=== PATIENT | male | born 1980 | race Caucasian/White ===

== ENCOUNTER → 2020-11-12 16:49 | Outpatient (BNVA) | payer OTHER, SELFPAY | PROVIDERS: Visit Provider Physician Assistant Medical | DX: M54.9 Dorsalgia, unspecified (principal); S49.90XD Unspecified injury of shoulder and upper arm, unspecified arm, subsequent encounter; X58.XXXD Exposure to other specified factors, subsequent encounter | CPT/HCPCS: 99213 ==

== ENCOUNTER → 2021-01-28 15:38 | Outpatient (BNVA) | payer OTHER, SELFPAY | PROVIDERS: Visit Provider Physician Assistant Medical | DX: M46.1 Sacroiliitis, not elsewhere classified (principal); S39.012D Strain of muscle, fascia and tendon of lower back, subsequent encounter; S43.401D Unspecified sprain of right shoulder joint, subsequent encounter; X58.XXXD Exposure to other specified factors, subsequent encounter | CPT/HCPCS: 99214 ==

== ENCOUNTER → 2021-03-11 13:04 | Outpatient (BNVA) | payer OTHER, SELFPAY | PROVIDERS: Visit Provider Physician Assistant Medical | DX: S33.9XXD Sprain of unspecified parts of lumbar spine and pelvis, subsequent encounter (principal); X58.XXXD Exposure to other specified factors, subsequent encounter; M77.8 Other enthesopathies, not elsewhere classified | CPT/HCPCS: 99213 ==

== ENCOUNTER → 2021-04-06 10:41 | Outpatient (BNVA) | payer OTHER, SELFPAY | PROVIDERS: Visit Provider Physician Assistant Medical | DX: S46.011D Strain of muscle(s) and tendon(s) of the rotator cuff of right shoulder, subsequent encounter (principal); X58.XXXD Exposure to other specified factors, subsequent encounter; M54.5 Low back pain | CPT/HCPCS: 99213 ==

== ENCOUNTER → 2021-04-27 11:00 | Outpatient (BNVA) | payer OTHER, SELFPAY | PROVIDERS: Visit Provider Physician Assistant Medical | DX: S39.92XD Unspecified injury of lower back, subsequent encounter (principal); S43.401D Unspecified sprain of right shoulder joint, subsequent encounter; X58.XXXD Exposure to other specified factors, subsequent encounter | CPT/HCPCS: 99213 ==

== ENCOUNTER 2021-05-05 09:00 | Outpatient (RCR) | payer OTHER, SELFPAY ==
--- NOTE | 2021-04-07 11:15 | MHC.PT.EP ---
[facility] [place] Office [place] Office [place] Office [address] 140 [facility] [phone] F: [phone] F: [phone] F: [phone] F: [phone] Physical Therapy Plan of Care Date of Evaluation: Date of Surgery: Diagnosis: right supraspinatus tendonopathy Assessment: The patient arrived reporting right shoulder pain that resulted from a work related injury in Aug 2019. He has painful and limited shoulder motion especially shoulder IR. Fear and apprehension with shoulder IR motion. Special tests indicate labral pathology, which is corroborated with a shoulder MRI done in September 2019. He has most pain when arm is perpendicular to his body against gravity. Pt reports pain in the back corner of his shoulder during all motion. No numbness or tingling noted in right arm. It does not seem to be cervical related. The patient has reduced shoulder strength due to pain limitation. As of result he has decreased functional reaching ability, decreased functional use. Frequency and Duration: The patient will be seen 2x/week x 4 weeks Short Term Goals: 1. Pt to be able to get dressed and perform 50% of functional reaching in 2 weeks. 2. Pt to be educated on good sitting posture to avoid further strain to shoulder. 3. Pt to find a comfortable sleeping position. Automation Control Technician Goals: 4 weeks - The patient to have greater than 160 degrees of flexion and abduction to show improved functional ROM. 4 weeks ? The patient to have 5/5 strength with flexion and abduction to demonstrate functional strength 4 weeks ? The patient to be able to return to all functional reaching, self care ADL's without any limitation from pain or loss of ROM. Treatment Plan: Modalities to reduce pain, spasms and effusion. Manual therapy to restore motion and function. Therapeutic exercise to improve strength and flexibility. Neuromuscular re-education for posture and balance. Therapeutic activities to return to functional activities of daily living. Electronically signed by: Katherine Jackson PT DPT Please sign and return to therapist. Thank you for your referral.
--- NOTE | 2021-04-19 10:15 | MHC.PT.PR ---
[facility] [place] Office [place] Office [place] Office [address] [phone] F: [phone] F: [phone] F: [phone] F: [phone] Physical Therapy Progress Note Diagnosis: right supraspinatus tendonopathy Date of Surgery: Date of Evaluation: 04/07/21 Treatments to Date: 3 Cancellations to Date: No Shows to Date: Subjective: My shoulder catches and I know what to do to put it back in. It really hurts me. Pain Score and Location: 6 under the shoulder blade, posterior shoulder Objective Measures: please see eval Assessment: The patient has catching/locking in his shoulder joint with overhead, diagonal movements. Once his shoulder catches it is locked and painful with restricted movement until he does horizontal abduction to free it. The pop is very painful. He has more pain with joint approximation such as weight bearing activities, or overhead activities with weight. He has no pain with certain movements such as scap retraction, horizontal abduction, shoulder extension. He is positive for special tests such as clunk 3, crank test, and jerk test. His pain presentation and objective findings are consistent with a posterior labral tear. I believe he would benefit from an Orthopedic surgeon consult. PT Plan: Continue PT for pain free strengthening, but refer back to MD for Ortho Consult Frequency and Duration: The patient will be seen 2x/week as long as pain does not increase. Treatment Plan: Therapeutic Exercise Dynamic Therapeutic Activities Neuromuscular Re-ed Manual Therapies Taping Home Exercise Program Patient Education Iontophoresis Hot or Cold Pack Other Reviewed/ Agreed with Student Documentation: Therapist: Katherine Jackson PT DPT Thank you once again for your referral.
--- NOTE | 2021-05-05 10:28 | MHC.PT.DC ---
[facility] [place] Office [place] Office [place] Office [address] Mendi[address] 140 [facility] [phone] F: [phone] F: [phone] F: [phone] F: [phone] Physical Therapy Discharge Report Diagnosis: right supraspinatus tendonopathy Date of Surgery: Date of Evaluation: 04/07/21 Date of Discharge: 05/05/21 Treatments to Date: 8 Cancellations to Date: No Shows to Date: Discharge Status: Independent with HEP Insurance Declined Tx Discharge Summary: The patient was given a HEP to continue to work at home. Pt cued in hip hinge position to avoid strain to lumbar spine. The patient feels he is getting stronger, but regular catching and locking is still happening intermittently in session. When shoulder catches the patient does horizontal abduction and it self reduces it. His activity tolerance has improved significantly demonstrated by increasing weight with certain exercises as performed in the treatment session above. His shoulder extension strength is 4+/5, tricep is 4+/5, mid scap is 4+/5. I believe a surgical consult would benefit this patient due to results from his previous MRI findings in 2019. Pt will f/u with [facility]. PT d/c today from skilled PT. Electronically signed by: Katherine Jackson PT DPT Please sign and return to therapist. Thank you for your referral.
== END 2021-06-07 08:00 | disposition home or self-care (01) ==
LOC: HO.PT 09:00
PROVIDERS: Visit Provider Physician Assistant Medical
DX: M77.8 Other enthesopathies, not elsewhere classified (principal)
CPT/HCPCS: 97033; 97110; 97112; 97140; 97162

== ENCOUNTER → 2021-09-22 09:31 | Outpatient (BNVA) | payer OTHER, SELFPAY | DX: Z02.83 Encounter for blood-alcohol and blood-drug test (principal) ==

== ENCOUNTER 2022-10-16 08:47 | Emergency (ER) | payer OTHER, SELFPAY ==
[2022-10-16 08:49] VITALS: BP 115/81; PULSE 87; RESP 16; TEMP 36.6; O2SAT 98; BMI 25.8
--- NOTE | 2022-10-16 09:10 | ED.GENADULT ---
HPI - General Adult General Chief complaint: General Medical Stated complaint: FLU SYMPTOMS Time Seen by Provider: 10/16/22 09:09 Source: patient Mode of arrival: ambulatory Limitations: no limitations History of Present Illness HPI narrative: Patient is a 41 year old assigned male at with no reported medical history presenting to the emergency department today with sinus pain and cough. Patient states that over the last 6 days he has had sinus pain and a cough. Patient denies any dizziness, lightheadedness, abdominal pain, nausea, vomiting, fever, chills, blurry vision, double vision, loss of vision, chest pain, difficulty breathing, shortness of breath, back pain, night sweats, pain with urination, increased urinary frequency, increased urinary urgency, blood in his urine or stool, syncope or a near syncopal episode, recent trauma or falls, bowel incontinence, bladder incontinence, bowel retention, bladder retention, or any other complaints at this time. Onset (ago): day(s) (6) Location: face Radiation: non-radiation Severity: mild Severity scale (1-10): 3 Quality: aching and dull Pain Consistency: constant Relieving factors: none Exacerbating factors: none Associated symptoms: cough Treatments prior to arrival: none Related Data Previous Rx's Medication Instructions Recorded doxycycline hyclate 100 mg tablet 100 mg PO BID 7 days #14 tabs 10/16/22 Allergies Allergy/AdvReac Type Severity Reaction Status Date / Time No Known Allergies Allergy Verified 10/01/20 06:37 [No Known Allergies*] Review of Systems Constitutional: Constitutional: Reports no additional constitutional complaints, Denies chills, Denies fever(s) and Denies night sweats Eyes: Eyes: Reports no additional eye complaints, Denies blurry vision, Denies change in vision, Denies diplopia, Denies eye discharge, Denies loss of vision and Denies eye pain ENT: Denies dizziness and Reports sinus pressure Cardiovascular: Cardiovascular: Reports no additional cardiovascular complaints, Denies chest pain, Denies lightheadedness, Denies Loss of Consciousness and Denies dyspnea Respiratory: Respiratory: Reports no additional respiratory complaints, Reports cough and Denies dyspnea Gastrointestinal: Gastrointestinal: Reports no additional gastrointestinal complaints, Denies abdominal pain, Denies melena, Denies hematochezia, Denies change in bowel habits and Denies change in stool character Genitourinary: Genitourinary: Reports no additional male genitourinary complaints, Denies hematuria, Denies oliguria, Denies difficulty urinating, Denies dysuria, Denies urinary frequency, Denies urinary hesitancy, Denies urinary incontinence and Denies urinary urgency Musculoskeletal: Musculoskeletal: Reports no additional musculoskeletal complaints, Denies numbness and Denies tingling Neurologic: Denies dizziness, Denies loss of vision, Denies numbness and Denies tingling Psychiatric: Psychiatric: Reports no additional psychiatric complaints Endocrine: Endocrine: Reports no additional endocrine complaints Hematologic/Lymphatic: Hematologic/Lymphatic: Reports no additional hematologic/lymphatic complaints Allergic/Immunologic: Allergic/Immunologic: Reports no additional allergic/immunologic complaints PMFSH Past Medical History Attestation statement: The following information was validated with the patient. Source: old records reviewed Surgical History No pertinent past surgical history Family History Family History Father Stroke Vision loss Diabetes Mother Arthritis Osteoporosis Hyperthyroidism Social History Social History Advance Directives: No Advance Directives Information Provided: No Physical Exam ED Vital Signs: Vital Signs - 24 hr 10/16/22 08:49 Temperature 97.8 F Pulse Rate 87 Respiratory Rate 16 Blood Pressure 115/81 Pulse Oximetry 98 Oxygen Delivery Method Room Air BMI result Body Mass Index 25.8 Const General: cooperative, no acute distress, alert and awake Nutritional Appearance: well nourished Orientation/consciousness: patient oriented x3 Limitations: no limitations [facility] Head: Yes normal to inspection and Yes atraumatic Ears: hearing grossly normal bilaterally and external ears normal General nose exam: Normal external nose present, no nasal discharge noted and no epistaxis Face and sinus: Yes normal facial exam, No abrasion, No laceration and Yes sinus tenderness Mouth: Normal oral and palatal mucosa present, no drooling and no muffled voice Eyes General: appearance normal, both eyes and all related structures Periorbital: periorbital findings normal Eyelids: Yes eyelids normal Conjunctivae: conjunctivae normal Pupils: Equal, round and reactive pupils present EOM: EOMs intact bilaterally Neck Neck: Yes normal visual inspection, Yes full ROM and Yes no lymphadenopathy Chest Chest palpation & inspection: normal inspection of the chest Resp Effort & Inspection: normal respiratory effort and able to speak in complete sentences Auscultation: clear to auscultation bilaterally Cardio Rate: regular rate Rhythm: regular rhythm GI Inspection: Yes normal to inspection Neuro General: patient oriented x3 and moves all extremities Cranial nerves: Yes Equal, round and reactive pupils present Cognition (Neuro): normal cognition Motor exam (neuro): 5/5 motor strength present throughout Sensory Exam: Normal double simultaneous stimulation for sensation Coordination: [id number] test normal Extrem General: Yes normal to inspection, Yes full ROM and Yes capillary refill normal Psych Appearance: grossly normal Mental Status: mental status grossly normal Affect: normal affect Attitude: cooperative Thought process: Normal thought process present Thought content: Normal thought content present Insight: Good insight present (Psych) Medical Decision Making MDM Narrative Medical decision making narrative: Patient is a 41 year old assigned male at with no reported medical history presenting to the emergency department today with sinus pain and a cough. Patient's physical exam showed sinus pain with palpation but was otherwise unremarkable. Patient's rapid COVID-19, influenza, and RSV tests were negative. Patient's clinical presentation is most consistent with acute sinusitis. I explained my physical exam findings as well as all test results to the patient. I answered all questions asked by the patient. I stressed the importance of the patient taking his medication as prescribed. I stressed the importance of the patient following up with his primary care provider. I stressed the importance of the patient returning to the emergency department immediately if his symptoms were to worsen or if he were to develop any dizziness, shortness of breath, difficulty breathing, chest pain, blurry vision, loss of vision, nausea, vomiting, abdominal pain, fever, chills, back pain, or any other complaints. Patient verbalized agreement and understanding with this treatment plan and discharge. Medical Records Medical records reviewed: Yes I reviewed the patient's medical records. Lab Data Lab results reviewed: Yes I reviewed the patient's lab results. Labs: Lab Results 10/16/22 Range/Units 09:34 Influenza Type A (PCR) NEGATIVE (Negative) Influenza Type B (PCR) NEGATIVE (Negative) RSV RNA Qual (PCR) NEGATIVE (Negative) SARS-CoV-2 RNA (RT-PCR) NEGATIVE (Negative) Discharge Plan Discharge Clinical Impression: Sinusitis Patient Disposition: Home, Self-Care Instructions: Sinusitis (ED) Additional Instructions: Follow up with your primary care provider. Return to the emergency department immediately if your symptoms worsen or if you develop any dizziness, shortness of breath, difficulty breathing, chest pain, blurry vision, loss of vision, nausea, vomiting, abdominal pain, fever, chills, back pain, or any other complaints. Prescriptions: New doxycycline hyclate 100 mg tablet 100 mg PO BID 7 Days Qty: 14 0RF [place] [facility] [place] (Call to establish and follow up with a primary care provider. If you already have a primary care provider, please follow up with them. ) [facility] [place] [facility] [place] Group] (Call to establish and follow up with a primary care provider. If you already have a primary care provider, please follow up with them. ) [facility] [place] [facility] [place] Group] (Call to establish and follow up with a primary care provider. If you already have a primary care provider, please follow up with them. ) Stand Alone Forms: Work/School Release Interventions: ED Discharge Assessment Last Done: 10/16/22 11:02 Discharge Date/Time: 10/16/22 11:02 Print Language: Omani
[2022-10-16 10:31] LABS: Influenza A PCR NEGATIVE (Negative); Influenza B PCR NEGATIVE (Negative); Resp Syncy Virus RNA Qual PCR NEGATIVE (Negative); SARS COV2 PCR INHOUSE NEGATIVE (Negative)
== END 2022-10-16 11:02 | disposition home or self-care (01) ==
PROVIDERS: Physician Assistant Medical; Emergency Provider Emergency Medicine
DX: J32.9 Chronic sinusitis, unspecified (principal); Z20.822 Contact with and (suspected) exposure to COVID-19
CPT/HCPCS: 0241U; 99282; 99283

== ENCOUNTER 2023-07-25 09:20 | Emergency (ER) | payer OTHER, SELFPAY ==
[2023-07-25 09:26] VITALS: BP 118/76; PULSE 92; RESP 18; TEMP 36.6; O2SAT 96; BMI 25.9
--- NOTE | 2023-07-25 10:15 | ED.GENADULT ---
HPI - General Adult General Chief complaint: General Medical Stated complaint: Rectal pain Time Seen by Provider: 07/25/23 09:35 Source: patient Mode of arrival: ambulatory Limitations: no limitations History of Present Illness HPI narrative: 40-year-old male with no significant past medical history presents to the ED today with a complaint of rectal pain x2 days, worse with defecation. Admits to straining when passing bowel movements. Notes his rectum is painful to the touch. States pain improvement with a warm a shower/warm compresses. Denies any BRBPR, hematochezia, constipation, diarrhea, abdominal pain, N/V, fever, chills. No trauma or injury to the area. MD complaint: Rectal pain Related Data Previous Rx's Medication Instructions Recorded doxycycline hyclate 100 mg tablet 100 mg PO BID 7 days #14 tabs 10/16/22 pramoxine 1 % topical foam 1 appl AR BID #15 grams 07/25/23 (Proctofoam) Allergies Allergy/AdvReac Type Severity Reaction Status Date / Time No Known Allergies Allergy Verified 07/25/23 09:26 [No Known Allergies*] Review of Systems Review of Systems: Constitutional : No Weight loss, No Fever, No Chills ENT/Mouth : No sore throat, No Rhinorrhea Eyes: No Eye Pain, No Swelling, No Redness Cardiovascular : No Chest Pain, No SOB, No Dyspnea on Exertion, No Orthopnea, No Edema, No Palpitations Respiratory : No Cough, No Sputum, No Wheezing Gastrointestinal : No Nausea, No Vomiting, No Diarrhea, No Constipation, No abdominal Pain, No Hematochezia, No Melena, + rectal pain Genitourinary : No Dysuria, No Urinary Frequency, No Hematuria, Musculoskeletal : No joint pain, No Myalgias, No Joint Swelling Skin : No Skin Lesions, No rash Neuro : No Weakness, No Numbness, No Dizziness, No Headache All other systems reviewed and are negative Yes all other systems are reviewed and are negative PMFSH Past Medical History Attestation statement: The following information was validated with the patient. Source: old records reviewed and nursing notes reviewed Surgical History No pertinent past surgical history Family History Family History Father Stroke Vision loss Diabetes Mother Arthritis Osteoporosis Hyperthyroidism Social History Social History Alcohol intake: never Smoked in Last 30 Days: Yes Use of substances other than those prescribed or required for medical reasons: No Advance Directives: No Physical Exam ED Vital Signs: Vital Signs - 24 hr 07/25/23 09:26 Temperature 98 F Pulse Rate 92 Respiratory Rate 18 Blood Pressure 118/76 Pulse Oximetry 96 Oxygen Delivery Method Room Air BMI result Body Mass Index 25.9 Vital signs stable Appearance: Alert.? Oriented X3.? No acute distress.? Head: Normocephalic, atraumatic, no step-offs or deformities Eyes: Pupils equal, round and reactive to light.? ENT: Pharynx normal.? Neck: Normal inspection.? Neck supple.? CVS: Normal heart rate and rhythm.? Pulses normal.? Respiratory: No respiratory distress.? Breath sounds normal.? Abdomen: Soft and nontender.? External hemorrhoid, not thrombosed, tender to palpation. Normal skin color, no active bleeding. No visible fissures. Skin: Skin warm and dry.? Normal skin color.? Normal skin turgor.? Extremities: No lower extremity edema.? No calf ttp. 5/5 strength to bilateral upper and lower extremities Back: No midline tenderness, no C-spine tenderness, full range of motion, no CVA tenderness bilaterally Neuro: Oriented X 3.? No motor deficit.? No sensory deficit. CN 2-12 intact Medical Decision Making Medical Decision Making [facility] Narrative: 1015 42 yo male presents with rectal pain x few days Rectal exam notable for external hemorrhoid without thrombosis, nontender to palpation, normal skin color. Likely hemorrhoids vs fissure, constipation. Unlikely fistula, GI bleed, diverticulosis, diverticulitis, IBD, thrombosed hemorrhoid, gangrene, fourniers Plan- dc home w/ proctofoam Differential Diagnosis Differential Diagnoses: The differential diagnosis associated with the presentation includes Likely hemorrhoids vs fissure, constipation. Unlikely fistula, GI bleed, diverticulosis, diverticulitis, IBD, thrombosed hemorrhoid, gangrene, fourniers Admission/Observation Consideration of admission/observation: Escalation of care including admission/observation considered Prescription Management I considered prescription management with: Other (Steroid) Core Measures AMI core measures followed: Yes Measure exclusions: not indicated Discharge Plan Discharge Clinical Impression: Hemorrhoids Patient Disposition: Home, Self-Care Instructions: Hemorrhoids (ED), Sitz Bath (DC), Thrombosed Hemorrhoid (ED) Additional Instructions: Take your medications as prescribed. If you were prescribed antibiotics today, it is important that you take your medication to their entirety, do not skip any doses, do not finish them early. Follow-up with your primary care provider this week. Return to the emergency department with new or worsening symptoms. Such as fevers, chills, chest pain, shortness of breath, nausea, vomiting, dizziness, headache, vision changes, lethargy In case of emergency call 911 You have hemorrhoids. An ointment has been sent to your pharmacy. Use this as prescribed. Follow-up with your PCP or general surgery. Prescriptions: New pramoxine [Proctofoam] 1 % foam 1 appl AR BID Qty: 15 0RF No Action doxycycline hyclate 100 mg tablet 100 mg PO BID 7 Days Qty: 14 0RF Referrals: [facility] [place]Provider Group] Physician,None [Primary Care Provider] - Interventions: ED Discharge Assessment Last Done: 07/25/23 10:44 Discharge Date/Time: 07/25/23 10:44
== END 2023-07-25 10:44 | disposition home or self-care (01) ==
PROVIDERS: Emergency Provider Student in an Organized Health Care Education/Training Program
DX: K64.4 Residual hemorrhoidal skin tags (principal)
CPT/HCPCS: 99283; 99284

== ENCOUNTER 2023-12-15 11:09 | Emergency (ER) | payer OTHER, SELFPAY ==
[2023-12-15 11:20] VITALS: BP 127/81; PULSE 71; RESP 20; TEMP 36.3; O2SAT 98; BMI 24.4
--- NOTE | 2023-12-15 11:20 | ED_ITS ---
HPI - General Adult General Chief complaint: General Medical Stated complaint: groin pain Time Seen by Provider: 12/15/23 12:38 Source: patient Mode of arrival: ambulatory Limitations: no limitations History of Present Illness HPI narrative: patient is a 42-year-old male who presents emergency department for evaluation of left groin pain. He states he was diagnosed with a small Inguinal hernia 20 years ago, which was never problematic. However, he reports pain over the past 3 months that has been increasingly worsening. Pain is localized to the left lower quadrant of the abdomen, bordering the suprapubic region more so to the midline, described as severe episodes of pain that is worse with coughing and movement, though he does admit the pain is intermittent. he states at times he notices a small bulge to the area that is painful. Reports that he decided to come for evaluation today because he noticed the pain to be present while walking at work which is the 1st time that this has occurred. He denies any urinary symptoms. Denies fevers, chills, nausea, vomiting, constipation, diarrhea. Related Data Previous Rx's Medication Instructions Recorded doxycycline hyclate 100 mg tablet 100 mg PO BID 7 days #14 tabs 10/16/22 pramoxine 1 % topical foam 1 appl [place] BID #15 grams 07/25/23 (Proctofoam) Allergies Allergy/AdvReac Type Severity Reaction Status Date / Time No Known Allergies Allergy Verified 07/25/23 09:26 [No Known Allergies*] Review of Systems Review of Systems: Yes all other systems are reviewed and are negative PMFSH Past Medical History Attestation statement: The following information was validated with the patient. Source: old records reviewed Onset Date is defined in the Problem List Problems that require an onset date and time if occurred within 24 hrs of arrival to the ED Aortic Dissection and Rupture; Neurologic impairment; Cardiopulmonary Arrest; Endotracheal Intubation; Insertion or Replacement of Mechanical Circulatory Assist Device Surgical History No pertinent past surgical history Family History Family History Father Stroke Vision loss Diabetes Mother Arthritis Osteoporosis Hyperthyroidism Social History Social History Alcohol intake: never Advance Directives: No Advance Directives Information Provided: No Physical Exam ED Vital Signs: Vital Signs - 24 hr 12/15/23 11:20 Temperature 97.3 F Pulse Rate 71 Respiratory Rate 20 Blood Pressure 127/81 Pulse Oximetry 98 Oxygen Delivery Method Room Air BMI result Body Mass Index 24.4 Appearance: Alert.?Oriented to person, place and time. No acute distress.?Normal affect. Eyes: Pupils equal, round and reactive to light.? ENT: Pharynx normal.?? Neck: Normal inspection.? Neck supple.?? CVS: Heart sounds normal. Normal heart rate and rhythm.? Pulses normal.?? Respiratory: No respiratory distress.? Lung sounds clear to auscultation bilaterally?? Abdomen: Soft and non-tender. Normoactive bowel sounds. No pulsatile mass.?? Skin: Skin warm and dry.? Normal skin color.? Extremities: No lower extremity edema.? Neuro: Moves all extremities spontaneously. Sensation intact bilaterally. Ambulates with normal steady gait. Course Course Course Narrative: This is a rapid medical exam: Additional HPI, ROS, PE not included below will be deferred to primary provider. Patient is a 43-year-old male presenting to the emergency department with complaint of left groin pain. States he was diagnosed with a small hernia around 20 years ago. For the past month pain has been more severe, intermittent, has been self-splinting during coughing, etc. Denies any difficulty urinating. Denies fevers. Area not visualized in triage due to privacy concerns. Plan: UA Procedures Smoking Cessation Time Spent Discussing Smoking Cessation w/Patient (min): 10 Patient Acknowledges Need for Cessation: Yes Additional Comments: declines interest in smoking cessation aide at this time Medical Decision Making Medical Decision Making MDM Narrative: Patient is a 43-year-old male presents emergency department for evaluation intermittent pain to the left lower quadrant abdomen/ inguinal region as per HPI. Physical examination Reveals no evidence of acute abdomen, he has a small reducible lump to the left lower abdomen concerning for a direct inguinal hernia with increased intra-abdominal pressure, though at rest there is no tenderness upon palpation. Given location of pain and reported symptoms I have suspicion for direct inguinal hernia versus muscular strain, discussed with patient that there is no evidence of strangulation/ incarceration of hernia. clinically have low suspicion for diverticulitis, colitis, obstruction, appendicitis, no genitourinary symptoms. Will give referral to Surgical Service, patient was also advised to establish care with a primary care provider as well in case he requires a referral with his insurance. Discussed worrisome signs and symptoms that would warrant re-evaluation in the emergency department. All questions answered. Stable for discharge. Differential Diagnosis Differential Diagnoses: The differential diagnosis associated with the presentation includes ( See narrative above) Admission/Observation Consideration of admission/observation: Escalation of care including admission/observation considered ( See narrative above) Lab Data MDM Lab Attestation statement: I reviewed the patient's lab results. noninfectious urine, no microscopic hematuria Labs: Lab Results 12/15/23 Range/Units 12:20 Urine Color Yellow Urine Appearance Clear Urine pH 7.5 (5.0-9.0) Ur Specific [place] 1.015 (1.005-1.025) Urine Protein Negative (Neg-Trace) mg/dL Urine Glucose (UA) Negative (Negative) mg/dL Urine Ketones Negative (Negative) mg/dL Urine Blood Negative (Negative) Urine Nitrite Negative (Negative) Ur Leukocyte Esterase Negative (Negative) Independent Historian Clinical information obtained from an independent historian. History obtained from or confirmed by: Spouse ( present who confirms history) Discharge Plan Discharge Clinical Impression: Direct inguinal hernia of left side Patient Disposition: Home, Self-Care Instructions: Inguinal Hernia (ED) Additional Instructions: You can take ibuprofen 200 mg, 3 tablets (600mg) every 6-8 hours as needed for pain, in addition to Tylenol 500 mg, 2 tablets (1,000mg) every 4-6 hours as needed for pain, but not to exceed 3 doses daily (3,000mg).? refrain from any heavy lifting, be sure to drink plenty of fluids to prevent constipation /draining, high-fiber diet, refrain from smoking as this can further we can the abdominal wall, and also result in increased coughing which can exacerbate these symptoms. I provided you with contact information for the surgical office, you may try calling their office to schedule an outpatient follow-up appointment, though depending on your insurance this may require a referral from a primary care provider. As discussed, it is recommended that you establish care with a primary care doctor. Prescriptions: No Action doxycycline hyclate 100 mg tablet 100 mg PO BID 7 Days Qty: 14 0RF pramoxine [Proctofoam] 1 % foam 1 appl [place] BID Qty: 15 0RF Referrals: Sandoval Rice MD [Physician] -
[2023-12-15 12:33] LABS: Appearance Urine Clear; Color Urine Yellow; Glucose Urine UA Negative (Negative); Leukocyte Esterase Urine Negative (Negative); Nitrite Urine Negative (Negative); PH 7.5 (5.0-9.0); Specific Gravity - Urine 1.015 (1.005-1.025); Urine Blood Negative (Negative); Urine Ketones Negative (Negative); Urine Protein Negative (Neg-Trace)
== END 2023-12-15 14:03 | disposition home or self-care (01) ==
PROVIDERS: Registered Nurse Emergency; Emergency Provider Student in an Organized Health Care Education/Training Program
DX: K40.90 Unilateral inguinal hernia, without obstruction or gangrene, not specified as recurrent (principal); R10.32 Left lower quadrant pain; Z71.6 Tobacco abuse counseling
CPT/HCPCS: 81003; 99282

== ENCOUNTER 2024-09-22 10:17 | Emergency (ER) | payer OTHER, SELFPAY ==
[2024-09-22 10:48] VITALS: BP 115/80; PULSE 74; RESP 18; TEMP 36.6; O2SAT 98; BMI 23.4
[2024-09-22 11:27] LABS: Influenza A PCR NEGATIVE (Negative); Influenza B PCR NEGATIVE (Negative); Resp Syncy Virus RNA Qual PCR NEGATIVE (Negative); SARS COV2 PCR INHOUSE POSITIVE (Negative)
--- NOTE | 2024-09-22 11:57 | ED.URI ---
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 Patient is not short of breath he has been exercising the past 2 days normally with no increased shortness of breath he has no chest pain no cough no sputum no nausea no vomiting no diarrhea no sore throat no runny nose and feels completely normal in his normal state of health Related Data Previous Rx's ?Medication ?Instructions ?Recorded doxycycline hyclate 100 mg tablet 100 mg PO BID 7 days #14 tabs 10/16/22 pramoxine 1 % topical foam 1 appl [place] BID #15 grams 07/25/23 (Proctofoam) Allergies Allergy/AdvReac Type Severity Reaction Status Date / Time No Known Allergies Allergy Verified 09/22/24 10:49 [No Known Allergies*] [facility] Past Medical History Surgical History No pertinent past surgical history Family History Family History Father Stroke Vision loss Diabetes Mother Arthritis Osteoporosis Hyperthyroidism Social History Social History Alcohol intake: never Advance Directives: No Advance Directives Information Provided: Yes Do you have a plan to hurt others: No Plan Physical Exam Vital Signs: Vital Signs: Last Vital Signs Temp 97.9 F 09/22/24 10:48 Pulse 74 09/22/24 10:48 Resp 18 09/22/24 10:48 BP 115/80 09/22/24 10:48 Pulse Ox 98 09/22/24 10:48 O2 Del Method Room Air 09/22/24 10:48 BMI result Body Mass Index 23.4 General appearance comfortable, cooperative cheerful Eyes no redness or discharge The pharynx is clear without redness swelling or exudate voice is normal membranes moist Neck is supple Chest clear to auscultation bilateral full symmetrical equal breath sounds Heart no murmur Abdomen soft nontender Extremities full range motion x4 Neuro interaction comprehension and expression normal gait and balance are normal Course Course Course Narrative: Well-appearing asymptomatic patient who tested positive for COVID 6 days ago because he felt slight increase in fatigue but otherwise has been asymptomatic and now is no longer fatigued and has no symptoms, he is given a note to return to work tomorrow Medical Decision Making Lab Data Labs: Lab Results 09/22/24 Range/Units 10:32 Influenza Type A (PCR) NEGATIVE (Negative) Influenza Type B (PCR) NEGATIVE (Negative) RSV RNA Qual (PCR) NEGATIVE (Negative) SARS-CoV-2 RNA (RT-PCR) POSITIVE A (Negative) Discharge Plan Discharge Clinical Impression: COVID Patient Disposition: Home, Self-Care Additional Instructions: As you are asymptomatic and have been for days and it is 6 days since you tested positive for COVID you are fully clear to return to work on all activities Return to the ER any time for difficulty breathing any worse condition or any concerns Prescriptions: No Action doxycycline hyclate 100 mg tablet 100 mg PO BID 7 Days Qty: 14 0RF pramoxine [Proctofoam] 1 % foam 1 appl MS BID Qty: 15 0RF Stand Alone Forms: Work/School Release Print Language: Hungarian
[2024-09-22 12:09] VITALS: BP 115/80; PULSE 74; RESP 18; TEMP 36.6; O2SAT 98
== END 2024-09-22 12:09 | disposition home or self-care (01) ==
PROVIDERS: Emergency Provider Emergency Medicine
DX: U07.1 COVID-19 (principal)
CPT/HCPCS: 0241U; 99282; 99283

== ENCOUNTER 2024-12-31 12:42 | Emergency (ER) | payer MEDICAID, SELFPAY ==
--- NOTE | ~2024-12-31 | CT_ITS ---
CLINICAL HISTORY: Right lower quadrant pain?hernia CT abdomen and pelvis without contrast Comparison: None Findings: No consolidation of the imaged lung bases. No obstructing stone in either kidney or either ureter. Vascular calcifications include aorta, its branches, and multiple phleboliths in the pelvis. Mild wall thickening of the urinary bladder. Gallbladder is contracted at the time of the imaging. Liver, spleen, pancreas, and adrenal glands are unremarkable for noncontrast study. No bowel containing hernia. No small bowel obstruction. Severe stool burden is present, including the cecum. Imaged appendix is within normal limits. Mild lower lumbar facet arthropathy. Bilateral spondylolysis of the L5. Grade 1 anterolisthesis at L5-S1. Mild subcutaneous edema is present dependently. IMPRESSION: 1. No obstructing stone in either kidney or either ureter. 2. Severe stool burden. No small bowel obstruction. This document has been electronically signed by: Jose Antoine MD on 12/31/2024 22:22:00
--- NOTE | ~2024-12-31 | XR_ITS ---
EXAMINATION: XR ANKLE, RIGHT CLINICAL INFORMATION: stepped wrong, ankle pain COMPARISON: Right foot 08/26/2017 TECHNIQUE: AP, lateral, and mortise views of the right ankle. FINDINGS: The ankle mortise and subtalar joints are normal. No visible acute fracture, dislocation or subluxation seen XR/XR ankle RT min 3V IMPRESSION: Normal right ankle. Electronically signed by: Jama Patel MD 12/31/2024 02:25 PM EST
--- NOTE | ~2024-12-31 | XR_ITS ---
EXAMINATION: XR FOOT, RIGHT CLINICAL INFORMATION: stepped wrong, foot pain COMPARISON: None available. TECHNIQUE: AP, lateral, and oblique views of the right foot. FINDINGS: The bones and soft tissues are normal. No fracture. Alignment is anatomic. Joint spaces are maintained. XR/XR foot RT min 3V IMPRESSION: Unremarkable right foot exam. Electronically signed by: Jama Patel MD 12/31/2024 02:23 PM EST
[2024-12-31 13:04] VITALS: BP 108/85; PULSE 78; RESP 20; TEMP 36.7; O2SAT 98; BMI 23.1
--- NOTE | 2024-12-31 13:08 | ED.GENADULT ---
HPI - General Adult General Chief complaint: General Medical Stated complaint: ankle pain and abd pain Time Seen by Provider: 12/31/24 21:11 Source: patient Mode of arrival: ambulatory Limitations: no limitations History of Present Illness ED Provider: HPI narrative: Patient is 44 years old with no significant past medical history was stepping on his truck with the toes on the steps noticed increased pain in the right Achilles tendon area with increased pain on plantar flexion. No swelling of the calf area no other injuries patient also complaining of bilateral inguinal swelling for last 1 week got worse earlier today at noon time on the right lower abdomen was in pain for 2 hours, which got better patient has had a normal bowel movement after the event patient's used to do heavy weight lifting in the past no history of kidney stones no nausea no vomiting Related Data Previous Rx's ?Medication ?Instructions ?Recorded doxycycline hyclate 100 mg tablet 100 mg PO BID 7 days #14 tabs 10/16/22 pramoxine 1 % topical foam 1 appl GA BID #15 grams 07/25/23 (Proctofoam) polyethylene glycol 3350 17 17 g PO DAILY #510 grams 12/31/24 gram/dose oral powder (Miralax) Allergies Allergy/AdvReac Type Severity Reaction Status Date / Time No Known Allergies Allergy Verified 12/31/24 13:07 [No Known Allergies*] Review of Systems Review of Systems: Yes all other systems are reviewed and are negative COUNTS INCLUDE 234 BEDS AT THE [facility] Past Medical History Surgical History No pertinent past surgical history Family History Family History Father Stroke Vision loss Diabetes Mother Arthritis Osteoporosis Hyperthyroidism Social History Social History Alcohol intake: never Advance Directives: No Advance Directives Information Provided: No Do you have a plan to hurt others: No Plan Physical Exam ED Vital Signs: Vital Signs - 24 hr 12/31/24 13:04 12/31/24 22:05 12/31/24 22:51 Temperature 98.0 F 98.4 F 98.4 F Pulse Rate 78 68 68 Respiratory Rate 20 16 16 Blood Pressure 108/85 114/67 114/67 Pulse Oximetry 98 98 98 Oxygen Delivery Method Room Air Room Air Room Air BMI result Body Mass Index 23.1 Appearance: Alert. Oriented X3. No acute distress. Eyes: PERRLA, No Nystagmus ENT: Pharynx normal. Oral Mucosa moist Neck: Normal inspection. Neck supple. CVS: Normal heart rate and rhythm. Pulses normal. Respiratory: No respiratory distress. Equal air entry bilateral, no wheezing/rales/rhonchi Abdomen: Soft and nontender. Bowel sounds are present, no mass palpable, no CVA tenderness small right direct inguinal hernia reducible Skin: Skin warm and dry. Normal skin color. Normal skin turgor. Extremities: No lower extremity edema. No calf tenderness no bruising or ecchymosis of the right Achilles tendon agrees tendon was palpable in his intact no gap noticed calf squeezing sign negative does have good dorsiflexion and plantar flexion Neuro: Oriented X 3. No motor deficit. No sensory deficit.No cerebellar signs , cranial nerves II-XII intact Course Course Course Narrative: This is a Rapid Medical Examination (RME) performed by Marley Hahn PA-C in triage. Full HPI, ROS, assessment and treatment plan per primary provider in the Main ED. 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 also endorses severe rigth lowr abd pain/ bulge, worse w/ coughing/ sneezing. hx hernia yrs ago. no testicular pain. Plan: labs, xrs ankle/foot, will defer imaging of abd to primary provider Medications Administered Discontinued Medications Generic Name Dose Route Start Last Admin Trade Name Velasquezq PRN Reason Stop Dose Admin Bisacodyl 10 mg 12/31/24 22:37 12/31/24 22:54 Bisacodyl 5 Mg Tablet.Dr PO 12/31/24 22:38 10 mg ONCE ONE Administration Magnesium Hydroxide 30 ml 12/31/24 22:37 12/31/24 22:54 Milk Of Magnesia 30 Ml Oral.Susp PO 12/31/24 22:38 30 ml ONCE ONE Administration Medical Decision Making Medical Decision Making [facility] Narrative: Patient likely with right Achilles injury with partial tear good dorsiflexion and plantar flexion of the foot without any significant pain Nitin wrap was applied. Also patient complaining of right lower abdominal pain clinically reducible inguinal hernia will do a CT scan to rule kidney stone/appendix Patient's CT scan essentially negative shows significant amount of stool burden patient denied any constipation CT scan showed good amount of stool was given stool softener Differential Diagnosis Differential Diagnoses: The differential diagnosis associated with the presentation includes Inguinal hernia/appendicitis right Achilles tendon tear/strain Lab Data MDM Lab Attestation statement: I reviewed the patient's lab results. 12/31/24 14:22 12/31/24 14:22 Labs: Lab Results 12/31/24 Range/Units 14:22 WBC 5.9 (4.8-10.8) X10*3/uL RBC 4.24 L (4.60-5.80) X10*6/uL Hgb 13.7 L (14.0-18.0) g/dl Hct 39.3 L (42.0-52.0) % MCV 92.7 (80.0-98.0) fL MCH 32.3 (27.0-33.0) pg MCHC 34.9 (31.0-36.0) g/dl RDW 12.0 (11.0-16.0) % Plt Count 226 (160-400) X10*3/uL MPV 10.3 (9.4-12.4) fL Immature Gran % (Auto) 0.2 (0.0-0.4) % Neut % (Auto) 48.1 (45-73) % Lymph % (Auto) 37.0 (20-40) % [place] % (Auto) 7.9 (2-11) % Eos % (Auto) 5.6 H (0-4) % Baso % (Auto) 1.2 (0-2) % Lymph # (Auto) 2.2 (1.2-4.9) X10*3/uL [place] # (Auto) 0.5 (0.1-1.2) X10*3/uL Eos # (Auto) 0.3 (0.0-0.4) X10*3/uL Baso # (Auto) 0.1 (0.0-0.2) X10*3/uL Abs Immat Gran (auto) 0.01 (0.00-0.03) X10*3/uL Absolute Neuts (auto) 2.9 (2.0-8.3) x10*3/uL Absolute Nucleated RBC 0.000 (0.0-0.012) X10*3/uL Nucleated RBC % (auto) 0.0 (0.0-0.2) /100WBC PT 11.3 (10.9-12.4) SEC INR 1.0 (0.9-1.1) Sodium 139 (135-145) mmol/L Potassium 4.0 (3.3-5.1) mmol/L Chloride 105 (96-108) mmol/L Carbon Dioxide 29 (22-29) mmol/L Anion Gap 9 L (12-20) BUN 12 (9-16) mg/dL Creatinine 0.77 (0.5-1.4) mg/dL Estim Creat Clear Calc 110.4 Estimated GFR > 60 Random Glucose 85 (60-115) mg/dL Calcium 9.4 (8.4-10.2) mg/dL Total Bilirubin 0.4 (0.0-1.0) mg/dL AST 42 H (5-37) U/L ALT 35 (0-40) U/L Alkaline Phosphatase 56 (39-117) U/L Total Protein 7.6 (6.5-8.0) g/dL Albumin 4.5 (3.5-5.0) g/dL Independent Interpretation I performed an independent interpretation of an: Plain X-Ray Interpretation: Negative x-ray Radiology Impression Discussion of test interpretation with radiology: I have reviewed the radiologist's reading. Radiologist Impression: [place] [id number] CT Scan Report Signed Patient: Kyree Presley MR#: [id number] : 1980 Acct:[id number] Age/Sex: 44 / M ADM Date: 12/31/24 Loc: .ED Attending Dr: Ordering Physician: Deniz Ceballos MD Date of Service: 12/31/24 Procedure(s): CT abdomen pelvis wo IV con Accession Number(s): [id number] cc: Physician,None ; Deniz Ceballos MD~ Report Number: [id number]: Total DLP = 392.00 mGy-cm CLINICAL HISTORY: Right lower quadrant pain?hernia CT abdomen and pelvis without contrast Comparison: None Findings: No consolidation of the imaged lung bases. No obstructing stone in either kidney or either ureter. Vascular calcifications include aorta, its branches, and multiple phleboliths in the pelvis. Mild wall thickening of the urinary bladder. Gallbladder is contracted at the time of the imaging. Liver, spleen, pancreas, and adrenal glands are unremarkable for noncontrast study. No bowel containing hernia. No small bowel obstruction. Severe stool burden is present, including the cecum. Imaged appendix is within normal limits. Mild lower lumbar facet arthropathy. Bilateral spondylolysis of the L5. Grade 1 anterolisthesis at L5-S1. Mild subcutaneous edema is present dependently. IMPRESSION: 1. No obstructing stone in either kidney or either ureter. 2. Severe stool burden. No small bowel obstruction. This document has been electronically signed by: Jose Antoine MD on 12/31/2024 22:22:00 Dictated By: Jose Antoine MD Signed By: <Electronically signed by Jose Antoine MD in OV> 12/31/242222 Discharge Plan Discharge Clinical Impression: Inguinal hernia, Constipation, Strain of Achilles tendon Patient Disposition: Home, Self-Care Instructions: Constipation (DC), Achilles Tendinitis (ED), Inguinal Hernia (ED) Additional Instructions: Likely you have strained your right Achilles tendon/partial tear Avoid strenuous activity as advised Wear the Nitin wrap to support tendon Avoid constipation Take stool softener as advised Follow up with surgeon for? Inguinal hernia Prescriptions: New polyethylene glycol 3350 [Miralax] 17 gram/dose powder 17 g PO DAILY Qty: 510 0RF No Action doxycycline hyclate 100 mg tablet 100 mg PO BID 7 Days Qty: 14 0RF pramoxine [Proctofoam] 1 % foam 1 appl [place] BID Qty: 15 0RF Referrals: Rah Alas MD [Physician] - 2 weeks Sandoval Rice MD [Physician] - 2 weeks Stand Alone Forms: Work/School Release Interventions: ED Discharge Assessment Last Done: 12/31/24 22:51 Print Language: Greenlandic
[2024-12-31 14:28] LABS: MANUAL DIFF FLAG NO
[2024-12-31 14:30] LABS: Basophils Absolute Auto 0.1 X10*3/uL (0.0-0.2); Basophils Percent Auto 1.2 % (0-2); Eosinophils Absolute Auto 0.3 X10*3/uL (0.0-0.4); Eosinophils Percent Auto 5.6 % (0-4); Hematocrit 39.3 % (42.0-52.0); Hemoglobin 13.7 g/dl (14.0-18.0); Imm Gran Abs Auto 0.01 X10*3/uL (0.00-0.03); Imm Gran Pct Auto 0.2 % (0.0-0.4); Lymphocytes Absolute Auto 2.2 X10*3/uL (1.2-4.9); Mean Corpuscular HGB Conc 34.9 g/dl (31.0-36.0); Mean Corpuscular Hemoglobin 32.3 pg (27.0-33.0); Mean Corpuscular Volume 92.7 fL (80.0-98.0); Mean Platelet Volume 10.3 fL (9.4-12.4); Monocytes Absolute Auto 0.5 X10*3/uL (0.1-1.2); Monocytes Percent Auto 7.9 % (2-11); Neutrophils Absolute Auto 2.9 x10*3/uL (2.0-8.3); Neutrophils Percent Auto 48.1 % (45-73); Platelet Count 226 X10*3/uL (160-400); Red Blood Count 4.24 X10*6/uL (4.60-5.80); White Blood Count 5.9 X10*3/uL (4.8-10.8)
[2024-12-31 14:41] LABS: Prothrombin Time 11.3 SEC (10.9-12.4)
[2024-12-31 14:45] LABS: Alanine Aminotransferase 35 U/L (0-40); Albumin Level 4.5 g/dL (3.5-5.0); Alkaline Phosphatase 56 U/L (39-117); Anion Gap 9 (12-20); Aspartate Amino Transferase 42 U/L (5-37); Bilirubin Total 0.4 mg/dL (0.0-1.0); Blood Urea Nitrogen 12 mg/dL (9-16); Calcium 9.4 mg/dL (8.4-10.2); Carbon Dioxide 29 mmol/L (22-29); Chloride 105 mmol/L (96-108); Creatinine Clr Calc Pharmacy 110.4; Estimated Glomerular Filt Rate > 60; Glucose Random 85 mg/dL (60-115); Sodium 139 mmol/L (135-145); Total Protein 7.6 g/dL (6.5-8.0)
[2024-12-31 22:05] VITALS: BP 114/67; PULSE 68; RESP 16; TEMP 36.9; O2SAT 98
[2024-12-31 22:51] VITALS: BP 114/67; PULSE 68; RESP 16; TEMP 36.9; O2SAT 98
[2024-12-31] MEDS: Milk of Magnesia 30 ML ORAL.SUSP PO (22:54)
[2024-12-31] MEDS: bisacodyL 5 MG TABLET.DR 10 MG PO (22:54)
== END 2024-12-31 22:58 | disposition home or self-care (01) ==
PROVIDERS: Physician Assistant Medical; Emergency Provider Internal Medicine
DX: K40.90 Unilateral inguinal hernia, without obstruction or gangrene, not specified as recurrent (principal); K59.00 Constipation, unspecified; S86.011A Strain of right Achilles tendon, initial encounter; X58.XXXA Exposure to other specified factors, initial encounter; Y93.9 Activity, unspecified; Y92.9 Unspecified place or not applicable; Y99.9 Unspecified external cause status; M79.671 Pain in right foot; R10.31 Right lower quadrant pain
CPT/HCPCS: 36415; 73610; 73630; 74176; 80053; 85025; 85610; 99283; 99284

== ENCOUNTER → 2024-12-31 13:06 | Outpatient (BNV) | payer MEDICAID, SELFPAY | PROVIDERS: Visit Provider Radiology Diagnostic Radiology | DX: R10.31 Right lower quadrant pain (principal); R93.3 Abnormal findings on diagnostic imaging of other parts of digestive tract; R19.5 Other fecal abnormalities | CPT/HCPCS: 73610; 73630; 74176 ==

== ENCOUNTER 2025-01-06 13:00 | Outpatient (AMB) | payer OTHER, SELFPAY ==
--- NOTE | 2025-01-06 13:03 | A.OFFVIS_ITS ---
Vital Signs 01/06/25 13:16 Height 5 ft 6 in Weight 143 lb BMI 23.1 Handedness Ambidextrous Intake Visit Reasons: New Pt - right ankle pain, DOP 12/31/24 Intake Note: Kyree is a 44 year old male who presents today with his and son as a new patient for a evaluation of his right ankle pain, DOP 12/31/24. Patient reports he was stepping on to his truck with the toes on the step. When he slipped from the step and noticed increased pain as per ED his pain was in the right Achilles tendon area with increased pain on plantar flexion. He mentions that his pain today is a 6/10 on the pain scale. He states that he is having pain in the back of his calf. Patient reports trying topical ointment with no relief. Allergies No Known Allergies [No Known Allergies*] Allergy (Verified 01/06/25 13:15) HPI HPI New Pt - right ankle pain, DOP 12/31/24: Details: Mr. Fernandez dwyer is a 44-year-old male who presents to the office today for evaluation of right ankle pain. Date of injury is 12/31/2024 where the patient s tates he was getting into his truck when he slipped and fell. He is feeling pain along the Achilles and points to the area of the peroneal tendons. He was seen in the emergency department where x-rays were obtained and negative for any acute fracture dislocation. He was given an Nitin wrap and instructed to follow up with orthopedics outpatient for further evaluation and treatment. [facility] Surgical History No pertinent past surgical history Family History Father Stroke Vision loss Diabetes Mother Arthritis Osteoporosis Hyperthyroidism Social History (Updated 01/06/25 @ 13:16 by Dorinda Amaral) Alcohol intake: never Patient Tobacco Use Status: Current everyday Tobacco user Cigarette Packs Per Day: 0.5 Current occupational status: employed Current occupation: [employer]/ Review of Systems Const All systems reviewed & are unremarkable except as noted in HPI and below Physical Exam Vital Signs: BMI result Body Mass Index 23.1 Const General: cooperative, healthy appearing and no acute distress Resp Effort & Inspection: normal respiratory effort and able to speak in complete sentences Cardio Rate: regular rate Peripheral pulses: Peripheral pulses 2+ throughout Skin Lesions: no lesions Rashes: no rashes Extrem Other: Right ankle normal to inspection no ecchymosis, erythema or edema. Slight tend erness to palpation along the peroneal tendons. Achilles tendon is palpable. Able to demonstrate dorsiflexion, plantar flexion, pronation supination with minimal discomfort. Negative Kwan test. Sensation is intact. Pedal pulse intact. Assessment & Plan Assessment & Plan (1) Right ankle sprain: Code(s): S93.401A - Sprain of unspecified ligament of right ankle, initial encounter Category: Medical Plan Mr. Fernandez dwyer is a 44-year-old male who presents to the office today for evaluation of right ankle pain. Date of injury is 12/31/2024 where the patient states he was getting into his truck when he slipped and fell. He is feeling pain along the Achilles and points to the area of the peroneal tendons. He was seen in the emergency department where x-rays were obtained and negative for any acute fracture dislocation. He was given an Nitin wrap and instructed to follow up with orthopedics outpatient for further evaluation and treatment. On the office today I discussed the role of a tall walking boot which would be beneficial for the patient to rest his right ankle. He was fit for a tall walking boot while in the office today off the shelf. He will remain in this for 2 weeks. I have also placed an order for physical therapy which he will attend. I would like him to wean out of the boot in the next 2 weeks. 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 I also provided him with Nitin wraps. And I sent a prescription for ibuprofen 600 mg Q 8 hours as needed for pain. His follow up appointment will be in 4 weeks for repeat x-rays, sooner if needed. X-rays of the right ankle which were obtained on 12/31/2024 and were reviewed by me, Malolry Ibrahim PA-C, revealed no acute fracture dislocation. Medications: New ibuprofen 600 mg PO Q8H 30 days PRN 90 tabs 0RF pain Coding Level of Care Code New Pt Level 3 (94883) Diagnoses Right ankle sprain S93.401A
[2025-01-06 13:16] VITALS: BMI 23.1
== END 2025-01-06 13:41 | disposition home or self-care (01) ==
PROVIDERS: Visit Provider Physician Assistant
DX: S93.401A Sprain of unspecified ligament of right ankle, initial encounter (principal); Z04.2 Encounter for examination and observation following work accident
CPT/HCPCS: 99203

== ENCOUNTER → 2025-01-06 13:00 | Outpatient (BNVA) | payer MEDICAID, SELFPAY | PROVIDERS: Visit Provider Physician Assistant | DX: S93.401A Sprain of unspecified ligament of right ankle, initial encounter (principal); W01.0XXA Fall on same level from slipping, tripping and stumbling without subsequent striking against object, initial encounter; Y93.9 Activity, unspecified; Y92.9 Unspecified place or not applicable; Y99.9 Unspecified external cause status | CPT/HCPCS: 99202 ==

== ENCOUNTER 2025-01-21 10:11 | Outpatient (AMB) | payer MEDICAID, SELFPAY ==
--- NOTE | 2025-01-21 10:12 | MHC.OFFVIS ---
Vital Signs 01/21/25 10:19 Height 5 ft 6 in Weight 143 lb 0.01 oz BMI 23.1 Intake Visit Reasons: Reducible inguinal hernia Intake Note: This patient presents for [facility] emergency department follow-up for reducible inguinal hernia. Pt c/o; reports on 12/31/2024 when he went to [facility] emergency department he had unbearable pain and bulge, reports occasional discomfort and burning sensation, occasional discomfort bilateral groins, reports no changes to bowel habits. Imagin12/31/2024- Abd/pelvis CT Solution Architect Required: No Accompanied by: Self / Same As Patient Allergies No Known Allergies [No Known Allergies*] Allergy (Verified 01/21/25 10:20) Medication List - Last Reconciled 01/21/25 by Sandoval Rice MD doxycycline hyclate 100 mg PO BID 7 days ibuprofen 600 mg PO Q8H PRN 30 days polyethylene glycol 3350 (Miralax) 17 grams PO DAILY pramoxine 1% (Proctofoam) 1 appl LA BID HPI HPI Reducible inguinal hernia: Details: 44-year-old male referred for an inguinal hernia on the right side. He says that about 3 weeks ago, he had noticed a large golf ball-sized mass on the right groin. He says that this was very uncomfortable at that time. He says he had to lie down in bed and this reduced on its own. He describes some discomfort in the area. He denies GI complaints He says that he remembers being told many years ago that he had a hernia although he does not recall exactly the details. He has an Achilles tendon injury currently and is wearing a splint. He also says he had lost about 40 lb the past year because of depression with multiple deaths in the family. ON LICENSE OF [facility] Medical History (Updated 01/21/25 @ 10:36 by Sandoval Rice MD) Right inguinal hernia Surgical History No pertinent past surgical history Family History Father Stroke Vision loss Diabetes Mother Arthritis Osteoporosis Hyperthyroidism Social History Alcohol intake: never Patient Tobacco Use Status: Current everyday Tobacco user Cigarette Packs Per Day: 0.5 Current occupational status: employed Current occupation: [employer]/ Review of Systems Const Denies chills, Denies fever(s) and Reports weight loss Card Denies chest pain, Denies dyspnea and Denies dyspnea on exertion Resp Denies cough, Denies dyspnea and Denies dyspnea on exertion GI Denies hematochezia and Denies change in bowel habits Denies hematuria and Denies difficulty urinating Musc Denies back pain and Denies limited range of motion Neuro Denies focal weakness and Denies convulsions Psych Denies depression and Denies mood swings Physical Exam Vital Signs: BMI result Body Mass Index 23.1 Const General: comfortable and no acute distress Orientation/consciousness: patient oriented x3 Neck Neck: Yes no lymphadenopathy Resp Auscultation: clear to auscultation bilaterally Cardio Rhythm: regular rhythm GI Other: Right inguinal hernia, reducible, obvious with Valsalva Palpation (GI): Soft to palpation, nontender and no guarding Neuro General: patient oriented x3 Extrem Other: Right foot in a splint Assessment & Plan Assessment & Plan (1) Right inguinal hernia: Code(s): K40.90 - Unilateral inguinal hernia, without obstruction or gangrene, not specified as recurrent Category: Medical Plan: He describes a large golf ball-sized mass on this right groin 3 weeks ago that was painful. He says that this reduced on its own. He describes some discomfort in the area. Physical exam suggests a reducible right inguinal hernia on Valsalva. I therefore explained the option repair of the right inguinal hernia with mesh. I reviewed the risks including but not limited to bleeding, infections, recurrence, postop pain, injury to bowel and other organs, as well as the benefits and alternatives. I reviewed with him what to expect postoperatively. He says he wants to proceed. Coding Level of Care Code New Pt Level 3 (94117) Diagnoses Right inguinal hernia K40.90
[2025-01-21 10:19] VITALS: BMI 23.1
== END 2025-01-21 10:34 | disposition home or self-care (01) ==
PROVIDERS: Visit Provider Surgery
DX: K40.90 Unilateral inguinal hernia, without obstruction or gangrene, not specified as recurrent (principal)
CPT/HCPCS: 99203

== ENCOUNTER → 2025-01-21 10:11 | Outpatient (BNVA) | payer MEDICAID, SELFPAY | PROVIDERS: Visit Provider Surgery | DX: K40.90 Unilateral inguinal hernia, without obstruction or gangrene, not specified as recurrent (principal) | CPT/HCPCS: 99202 ==

== ENCOUNTER 2025-02-05 09:58 | Outpatient (AMB) | payer MEDICAID, SELFPAY ==
--- NOTE | 2025-02-05 10:07 | MHC.OFFVIS ---
Intake Visit Reasons: OV- right ankle pain, DOI 12/31/24 Intake Note: Kyree is a 44 year old male who presents today with his and son for a follow up of his right ankle sprain, DOP 12/31/24. Patient reports he is doing better today. He has noticed when he is sleeping/waking up he points his toe and stretches unintentional and then he feels a slight sharp pain in his ankle. Allergies No Known Allergies [No Known Allergies*] Allergy (Verified 02/05/25 10:12) HPI HPI OV- right ankle pain, DOI 12/31/24: Details: Mr. Presley is a 44-year-old male who presents to the office today for follow-up of a right ankle sprain. Date of injury was 12/31/2024 when the patient reports he was stepping on to his truck with his toes on the step and slipped off. Patient has been in a tall walking boot since the injury. He has not attended any physical therapy to this date but states that he does have physical therapy upcoming at our [place] location. He has been out of work since his last appointment. [facility] Medical History (Updated 01/21/25 @ 10:36 by Sandoval Rice MD) Right inguinal hernia Surgical History No pertinent past surgical history Family History Father Stroke Vision loss Diabetes Mother Arthritis Osteoporosis Hyperthyroidism Social History Alcohol intake: never Patient Tobacco Use Status: Current everyday Tobacco user Cigarette Packs Per Day: 0.5 Current occupational status: employed Current occupation: [employer]/ Review of Systems Const All systems reviewed & are unremarkable except as noted in HPI and below Physical Exam Const General: cooperative, healthy appearing and no acute distress Resp Effort & Inspection: normal respiratory effort and able to speak in complete sentences Cardio Rate: regular rate Peripheral pulses: Peripheral pulses 2+ throughout Skin Lesions: no lesions Rashes: no rashes Extrem Other: Right ankle normal to inspection no ecchymosis, erythema or edema. Slight tenderness to palpation along the peroneal and tibial tendons. Achilles tendon is palpable. Able to demonstrate dorsiflexion, plantar flexion, pronation supination with no discomfort and to end range. Negative Kwan test. Sensation is intact. Pedal pulse intact. Assessment & Plan Assessment & Plan (1) Right ankle sprain: Code(s): S93.401A - Sprain of unspecified ligament of right ankle, initial encounter Category: Medical Plan Mr. Presley is a 44-year-old male who presents to the office today for follow-up of a right ankle sprain. Date of injury was 12/31/2024 when the patient reports he was stepping on to his truck with his toes on the step and slipped off. Patient has been in a tall walking boot since the injury. He has not attended any physical therapy to this date but states that he does have physical therapy upcoming at our [place] location. He has been out of work since his last appointment. While the office today, we discussed discontinuing the tall walking boot at this time and the patient was fit for a lace-up ankle brace off the shelf. He will continue to weightbear as tolerated. I would still like him to attend physical therapy to work on strengthening and gait training. He will remain out of work until his follow-up in 6 weeks, sooner if needed. Coding Level of Care Code Global (67261) Diagnoses Right ankle sprain S93.401A
== END 2025-02-05 10:46 | disposition home or self-care (01) ==
LOC: HO.HOS 09:59
PROVIDERS: Visit Provider Physician Assistant
DX: S93.401A Sprain of unspecified ligament of right ankle, initial encounter (principal)
CPT/HCPCS: 99213

== ENCOUNTER → 2025-02-05 09:58 | Outpatient (BNVA) | payer MEDICAID, SELFPAY | PROVIDERS: Visit Provider Physician Assistant | DX: S93.401D Sprain of unspecified ligament of right ankle, subsequent encounter (principal); X58.XXXD Exposure to other specified factors, subsequent encounter | CPT/HCPCS: 99212 ==

== ENCOUNTER 2025-02-23 09:04 | Outpatient (REF) | payer OTHER, MEDICAID, SELFPAY ==
--- NOTE | ~2025-02-23 | XR_ITS ---
EXAMINATION: XR SHOULDER 2 OR MORE VIEWS RIGHT HISTORY: M25.519 - Pain in unspecified shoulder COMPARISON: Comparison is made with the prior examination dated 09/07/2019. FINDINGS: Three views of the right shoulder are submitted. Osseous mineralization is normal. There is no fracture or dislocation. The joint spaces are preserved. The soft tissues are unremarkable. XR/XR shoulder RT min 2V IMPRESSION: Unremarkable examination of the right shoulder. Electronically signed by: Ben Garza MD 02/23/2025 03:02 PM EDT
== END 2025-02-23 09:05 | disposition home or self-care (01) ==
LOC: HO.HOSX 09:04
PROVIDERS: Visit Provider Physician Assistant
DX: M25.511 Pain in right shoulder (principal)
CPT/HCPCS: 73030; 99212

== ENCOUNTER 2025-02-23 09:46 | Outpatient (AMB) | payer OTHER, MEDICAID, SELFPAY ==
--- NOTE | 2025-02-23 09:53 | MHC.OFFVIS ---
Vital Signs 02/23/25 10:05 Height 5 ft 6 in Weight 143 lb BMI 23.1 Handedness Ambidextrous Intake Visit Reasons: New Prob Right shoulder pain Intake Note: Kyree is a 44 year old right hand dominant male who presents today for a evaluation of his right shoulder pain. HX of injury to the right shoulder. He states ongoing pain for about a couple years. He mentions that he has tried PT with no relief and also tried an injection which gave him 8 months of relief. Which gave him that he has tried Patient notices when he does overhead reaching, reaching his back, picking up a heavy object and laying on his side gives him a lot of pain. He has tried and failed NSAIDs with no relief. Allergies No Known Allergies [No Known Allergies*] Allergy (Verified 02/23/25 10:04) HPI HPI New Prob Right shoulder pain: Details: The patient is a 44-year-old male presenting with right shoulder pain. The symptoms began due to a work-related injury involving repetitive lifting and throwing activities years ago. Initially managing the pain with physical therapy and corticosteroid injections, the patient experienced temporary relief. He reports he had about 8 months of relief with the corticosteroid injection. However, the discomfort has intensified over time, affecting his ability to lift the arm, particularly with overhead movements. His sleep is also disturbed due to severe pain, limiting him to short durations before needing to change positions. His occupation requires the usage of both hands, yet he predominantly performs fine motor tasks with the right. [facility] Medical History (Updated 02/23/25 @ 11:47 by Mallory Ibrahim PA-C) Right inguinal hernia Surgical History No pertinent past surgical history Family History Father Stroke Vision loss Diabetes Mother Arthritis Osteoporosis Hyperthyroidism Social History Alcohol intake: never Patient Tobacco Use Status: Current everyday Tobacco user Cigarette Packs Per Day: 0.5 Current occupational status: employed Current occupation: [employer]/ Review of Systems Const All systems reviewed & are unremarkable except as noted in HPI and below Physical Exam Vital Signs: BMI result Body Mass Index 23.1 Const General: cooperative, healthy appearing and no acute distress Resp Effort & Inspection: normal respiratory effort and able to speak in complete sentences Cardio Rate: regular rate Peripheral pulses: Peripheral pulses 2+ throughout Skin Lesions: no lesions Rashes: no rashes Extrem Other: Right shoulder: Able to reach end range of forward flexion and abduction but necessitates moving slowly with pain. Able to reach T12. External rotation to 45 degrees with pain. Positive pain with cross-body reach. Unable to fully observe empty can testing due to pain. Negative drop arm. NVI. Assessment & Plan Assessment & Plan (1) Painful arc syndrome of right shoulder: Code(s): M75.101 - Unspecified rotator cuff tear or rupture of right shoulder, not specified as traumatic Category: Medical Plan I discussed with the patient the limitations of x-ray imaging in assessing soft tissue conditions, such as potential rotator cuff injuries. The patient suffers from persistent right shoulder pain, which significantly impacts daily functions and sleep despite completed conservative management, including physical therapy and injections. I emphasized that an MRI would provide detailed images necessary for confirming the extent of any soft tissue damage. The patient inquired about surgical options due to persistent and significant pain. I explained the benefits and risks of surgical intervention but noted that this would be considered after comprehensive imaging assessments. The patient consented to the MRI and understood that a surgical referral might be necessary depending on those results. Follow-up and further discussion were planned post-imaging. Orders: Orders XR shoulder RT min 2V Today M25.519 - Pain in unspecified shoulder MR shoulder RT wo con Today M75.101 - Unspecified rotator cuff tear or rupture of right shoulder, not specified as traumatic Coding Level of Care Code Est Pt Level 4 (22689) Diagnoses Painful arc syndrome of right shoulder M75.101
[2025-02-23 10:05] VITALS: BMI 23.1
== END 2025-02-23 10:15 | disposition home or self-care (01) ==
LOC: HO.HOS 09:46
PROVIDERS: PCP Internal Medicine; Visit Provider Physician Assistant
DX: M75.101 Unspecified rotator cuff tear or rupture of right shoulder, not specified as traumatic (principal)
CPT/HCPCS: 99214

== ENCOUNTER → 2025-02-23 09:50 | Outpatient (BNV) | payer OTHER, MEDICAID, SELFPAY | PROVIDERS: Visit Provider Radiology Diagnostic Radiology | DX: M25.511 Pain in right shoulder (principal) | CPT/HCPCS: 73030 ==

== ENCOUNTER 2025-03-07 10:56 | Outpatient (REF) | payer MEDICAID, SELFPAY ==
--- NOTE | ~2025-03-07 | MR_ITS ---
CLINICAL HISTORY: M75.101 - Unspecified rotator cuff tear or rupture of right shoulder, no... MR right shoulder Comparison: DX/HI/SR - XR SHOULDER RT MIN 2V - 02/23/25 09:50 EDT Findings: No fracture or dislocation of the osseous structures. No bone marrow edema. Small amount of cystic change in the humeral head. The acromioclavicular joint is unremarkable. No joint effusion. Trace amount of fluid in the subacromial/subdeltoid bursa. There is mild increased signal in the supraspinatus tendon. Trace increased signal in the subscapularis and infraspinatus tendons. No tear, retraction or muscular atrophy. Teres minor is unremarkable. Irregularity and increased signal in the superior labrum. The bicipital labral anchor appears thinned. Preserved glenohumeral cartilage. Intact biceps tendon. Increased fluid in the tendon sheath. The coracoacromial and coracohumeral ligaments are intact. Cutaneous and subcutaneous tissues are normal. The quadrilateral space is unremarkable. Impression: Supraspinatus, subscapularis and infraspinatus tendinopathy without tear. Question tear of the superior labrum. Biceps tenosynovitis. This document has been electronically signed by: Bonnie Emmanuel MD on 03/09/2025 22:11:10
== END 2025-03-07 10:57 | disposition home or self-care (01) ==
LOC: HO.MRI 10:56
PROVIDERS: PCP Internal Medicine; Visit Provider Physician Assistant
DX: M75.101 Unspecified rotator cuff tear or rupture of right shoulder, not specified as traumatic (principal)
CPT/HCPCS: 73221

== ENCOUNTER → 2025-03-07 11:04 | Outpatient (BNV) | payer MEDICAID, SELFPAY | PROVIDERS: PCP Internal Medicine; Visit Provider Radiology Diagnostic Radiology | DX: M67.813 Other specified disorders of tendon, right shoulder (principal); M65.821 Other synovitis and tenosynovitis, right upper arm | CPT/HCPCS: 73221 ==

== ENCOUNTER 2025-03-10 11:39 | Outpatient (AMB) | payer MEDICAID, SELFPAY ==
--- NOTE | 2025-03-10 11:40 | MHC.OFFVIS ---
Vital Signs 03/10/25 11:42 Height 5 ft 6 in Weight 143 lb BMI 23.1 Handedness Right Intake Visit Reasons: OV - MRI review of right shoulder Intake Note: Kyree is a 44 year old right hand dominant male who presents today for a evaluation of his right shoulder pain. Patient reports he is still having pain. Allergies No Known Allergies [No Known Allergies*] Allergy (Verified 03/10/25 11:41) HPI HPI OV - MRI review of right shoulder: Details: Mr. Presley is a 44-year-old right-hand dominant male who presents to the office today for MRI review of the right shoulder. He has had 2 prior cortisone injections into the right shoulder. One did not give him a few days of relief and the other gave him 8 months of relief. He has also tried physical therapy in the past but inevitably his pain returns. Therefore at his last appointment with me I had ordered an MRI to further evaluate the integrity of the shoulder and surrounding structures. 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 Additionally, he also carries his mail bag on the right upper extremity. ON LICENSE OF [facility] Medical History (Updated 02/23/25 @ 11:47 by Mallory Ibrahim PA-C) Right inguinal hernia Surgical History No pertinent past surgical history Family History Father Stroke Vision loss Diabetes Mother Arthritis Osteoporosis Hyperthyroidism Social History Alcohol intake: never Patient Tobacco Use Status: Current everyday Tobacco user Cigarette Packs Per Day: 0.5 Current occupational status: employed Current occupation: [employer]/ Review of Systems Const All systems reviewed & are unremarkable except as noted in HPI and below Physical Exam Vital Signs: BMI result Body Mass Index 23.1 Const General: cooperative, healthy appearing and no acute distress Resp Effort & Inspection: normal respiratory effort and able to speak in complete sentences Cardio Rate: regular rate Peripheral pulses: Peripheral pulses 2+ throughout Skin Lesions: no lesions Rashes: no rashes Extrem Other: Right shoulder: Able to reach end range of forward flexion and abduction but necessitates moving slowly with pain. Able to reach T12. External rotation to 45 degrees with pain. Positive pain with cross-body reach. Unable to fully observe empty can testing due to pain. Negative drop arm. NVI. Office Procedures AMB Joint Injection/Aspiration Joint Injection/Aspiration Primary Site: right shoulder Prep: site was prepped using aseptic technique, ethochloride spray was applied and injection warnings given Injected: 80 mg of, DepoMedrol, with 8 mL of (2% plain lido ) and in the subcromial space Approach Used: posterolateral Procedure: The patient tolerated the procedure well, but had some pain with the injection and there was some relief with the local anesthesia Coding 55453 - Large joint Procedure code (CPT) selection complete Assessment & Plan Assessment & Plan (1) Painful arc syndrome of right shoulder: Code(s): M75.101 - Unspecified rotator cuff tear or rupture of right shoulder, not specified as traumatic Category: Medical Plan Mr. Presley is a 44-year-old right-hand dominant male who presents to the office today for MRI review of the right shoulder. He has had 2 prior cortisone injections into the right shoulder. One did not give him a few days of relief and the other gave him 8 months of relief. He has also tried physical therapy in the past but inevitably his pain returns. Therefore at his last appointment with me I had ordered an MRI to further evaluate the integrity of the shoulder and surrounding structures. 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 Additionally, he also carries his mail bag on the right upper extremity. While in the office today, we discussed the MRI findings. The patient was offered a cortisone injection in the right shoulder with 80 mg of DepoMedrol. The patient was explained the risks, benefits, and alternatives to receiving this injection. After receiving consent for the injection, the patient had the procedure done while in the office today. The patient tolerated the procedure well with no complications. I also recommend physical therapy. It is unclear if the patient will follow through with physical therapy sessions however an order will be placed and our physical therapy office will reach out to the patient to schedule some appointments. I do think that the likely cause of his recurrent right shoulder pain is from repetitive motion. MRI obtained on 03/07/2025 of the right shoulder: Impression: Supraspinatus, subscapularis and infraspinatus tendinopathy without tear. Question tear of the superior labrum. Biceps tenosynovitis. Coding Level of Care Code Est Pt Level 3 (28808) Diagnoses Painful arc syndrome of right shoulder M75.101 CPT Codes Coding - 71391 Large joint: 00829 - Large joint ([id number])
[2025-03-10 11:42] VITALS: BMI 23.1
== END 2025-03-10 11:57 | disposition home or self-care (01) ==
LOC: HO.HOS 11:39
PROVIDERS: PCP Internal Medicine; Visit Provider Physician Assistant
DX: M75.101 Unspecified rotator cuff tear or rupture of right shoulder, not specified as traumatic (principal)
CPT/HCPCS: 20610; 99213

== ENCOUNTER → 2025-03-10 11:39 | Outpatient (BNVA) | payer MEDICAID, SELFPAY | PROVIDERS: PCP Internal Medicine; Visit Provider Physician Assistant | DX: M75.101 Unspecified rotator cuff tear or rupture of right shoulder, not specified as traumatic (principal) | CPT/HCPCS: 20610; 99212; J1010; J2003 ==

== ENCOUNTER 2025-03-17 10:00 | Outpatient (RCR) | payer OTHER, MEDICAID, SELFPAY ==
--- NOTE | 2025-03-12 11:30 | MHC.PT.EP ---
[facility] [place] [facility] [place] [facility] [place] Office [address] Dennis Mendiola [address] [phone] F: [phone] F: [phone] F: [phone] F: [phone] Physical Therapy Plan of Care Date of Evaluation: 03/12/25 Date of Surgery: n/a Diagnosis: R ankle sprain Assessment: Patient is a 44 year old male presenting to PT with complaints of pain in his R ankle. Pt reports onset of pain began 12/31/2024 due to slipping out of his work truck. He presents today with impairments in pain, ankle ROM, ankle strength, balance. 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 Pt expresses [facility] goal of reducing pain, and is motivated to work towards this in PT. Clinical presentation today is most consistent with signs and sx associated with R ankle pain and pt will benefit from skilled PT 2 week x 4 weeks to address the following problems and impairments noted upon evaluation: pain, ankle ROM, ankle strength, balance. These problems limit the patient with the following functional activities: ambulating, stair negotiation, ADLs, work. The prescribed treatment plan of care is medically necessary. Co-morbidities of n/a were identified and taken into considerations of plan of care. Pt was educated on HEP, role of PT, prognosis, POC. Frequency and Duration: The patient will be seen 2 x week x 4 weeks Short Term Goals: Pt will demonstrate R ankle ROM equal B in 2 weeks. Pt will demonstrate R ankle MMT strength 5/5 in 2 weeks. Pt will demonstrate improved SLS on R to 30 sec with min to no ankle strategy in 2 weeks. [facility] Goals: Pt will demonstrate improved LEFI score by 9 points in 4 weeks for improved functional mobility. Pt will demonstrate ability to ambulate with min to no pain in 4 weeks for return to work at [employer]. Pt will demonstrate ability to negotiate stairs with min to no pain in 4 weeks for return to PLOF. Treatment Plan: Modalities to reduce pain, spasms and effusion. Manual therapy to restore motion and function. Therapeutic exercise to improve strength and flexibility. Neuromuscular re-education for posture and balance. Therapeutic activities to return to functional activities of daily living. Electronically signed by: Shabnam Oneal, PT, DPT, ATC Please sign and return to therapist. Thank you for your referral.
--- NOTE | 2025-04-22 11:41 | MHC.PT.DC ---
[facility] [place] Office [place] Office [place] Office [address] Dennis Mendiola [address] [phone] F: [phone] F: [phone] F: [phone] F: [phone] Physical Therapy Discharge Report Diagnosis: R ankle sprain Date of Surgery: n/a Date of Evaluation: 03/12/25 Date of Discharge: 04/22/25 Treatments to Date: 2 Cancellations to Date: 3 No Shows to Date: 0 Discharge Status: Patient Elected to Stop Discharge Summary: Pt refused to enter to his PT appointment with COLLABORATING SUPERVISING PHYSICIAN despite being educated on his first visit that he will have two therapists and alternate between the two. Pt agitated regarding the situation of this and ultimately supervisor mold shop made aware and also had a conversation and phone call with pt. Ultimately pt has not attended skilled PT in > 30 days and his POC has now . Pt is d/c per policy. Electronically signed by: Shabnam Oneal, PT, DPT, ATC Please sign and return to therapist. Thank you for your referral.
== END 2025-04-22 11:41 | disposition home or self-care (01) ==
LOC: HO.PTCHIC 10:00
PROVIDERS: PCP Internal Medicine; Visit Provider Physician Assistant
DX: S93.401D Sprain of unspecified ligament of right ankle, subsequent encounter (principal); X58.XXXD Exposure to other specified factors, subsequent encounter
CPT/HCPCS: 97110; 97112; 97161; 97530

== ENCOUNTER 2025-03-19 12:46 | Outpatient (AMB) | payer MEDICAID, SELFPAY ==
--- NOTE | 2025-03-19 12:56 | MHC.OFFVIS ---
Vital Signs 03/19/25 13:13 Height 5 ft 6 in Weight 143 lb BMI 23.1 Intake Visit Reasons: OV- right ankle pain, DOI 12/31/24- follow up Intake Note: Kyree is a 44 year old male who presents today with his and son for a follow up of his right ankle sprain, DOI 12/31/24. Patient reports his ankle is doing well. Patient does notice a clicking/popping sound when he is moving his ankle from side to side. Allergies No Known Allergies [No Known Allergies*] Allergy (Verified 03/19/25 13:13) HPI HPI OV- right ankle pain, DOI 12/31/24- follow up: Details: Mr. Presley is a 44-year-old male who presents to the office today status post right ankle sprain. Date of injury was 12-31. He had been attending physical therapy and seeing improvement. He is looking to return back to work. [facility] Medical History (Updated 02/23/25 @ 11:47 by Mallory Ibrahim PA-C) Right inguinal hernia Surgical History No pertinent past surgical history Family History Father Stroke Vision loss Diabetes Mother Arthritis Osteoporosis Hyperthyroidism Social History Alcohol intake: never Patient Tobacco Use Status: Current everyday Tobacco user Cigarette Packs Per Day: 0.5 Current occupational status: employed Current occupation: [employer]/ Review of Systems Const All systems reviewed & are unremarkable except as noted in HPI and below Physical Exam Vital Signs: BMI result Body Mass Index 23.1 Const General: cooperative, healthy appearing and no acute distress Resp Effort & Inspection: normal respiratory effort and able to speak in complete sentences Cardio Rate: regular rate Peripheral pulses: Peripheral pulses 2+ throughout Skin Lesions: no lesions Rashes: no rashes Extrem Other: Right ankle normal to inspection no ecchymosis, erythema or edema. Able to demonstrate dorsiflexion, plantar flexion, pronation supination with no discomfort and to end range. Sensation is intact. Pedal pulse intact. Assessment & Plan Assessment & Plan (1) Right ankle sprain: Code(s): S93.401A - Sprain of unspecified ligament of right ankle, initial encounter Category: Medical Plan While in the office today, the patient has requested to return back to work. I am agreeable with this plan. He was given a lace-up ankle brace at a previous appointment in which he will wear during activities. He will continue with physical therapy until all sessions are completed. He will follow up PRN, sooner if needed. Coding Level of Care Code Est Pt Level 3 (97827) Diagnoses Right ankle sprain S93.401A
[2025-03-19 13:13] VITALS: BMI 23.1
== END 2025-03-19 13:43 | disposition home or self-care (01) ==
LOC: HO.HOS 12:47
PROVIDERS: PCP Internal Medicine; Visit Provider Physician Assistant
DX: S93.401D Sprain of unspecified ligament of right ankle, subsequent encounter (principal)
CPT/HCPCS: 99213

== ENCOUNTER → 2025-03-19 12:46 | Outpatient (BNVA) | payer OTHER, MEDICAID, SELFPAY | PROVIDERS: PCP Internal Medicine; Visit Provider Physician Assistant | DX: S93.401D Sprain of unspecified ligament of right ankle, subsequent encounter (principal) | CPT/HCPCS: 99212 ==

== ENCOUNTER 2025-04-03 07:57 | Day surgery (SDC) | payer MEDICAID, SELFPAY ==
[2025-04-01 11:34] VITALS: BMI 23.1
--- NOTE | 2025-04-02 10:21 | HO.ANESPROP2 ---
Documented by User: Maddison Olmstead NP 04/02/25 10:22 HPI - Anesthesia Eval Consult details Narrative: 44yo M for Right Repair Hernia Inguinal Reducible with mesh PMFSH Active Problems Active Problems: All Active Problems Painful arc syndrome of right shoulder (Acute) Right inguinal hernia (Acute) Right ankle sprain (Acute) COVID (Acute) Past Medical History Medical History (Updated 02/23/25 @ 11:47 by Mallory Ibrahim PA-C) Right inguinal hernia Family History Family History Father Stroke Vision loss Diabetes Mother Arthritis Osteoporosis Hyperthyroidism Surgical History Surgical History No pertinent past surgical history Social History Social History Are you a primary career services representative to a significant other at home: No Do you presently have visiting nurse or other home services: No Alcohol intake: never Patient Tobacco Use Status: Current everyday Tobacco user Cigarette Packs Per Day: 0.5 Cigarettes Per Day: 5 Use of substances other than those prescribed or required for medical reasons: Yes Substance Use Frequency: Occasionally Have you been hit, kicked, punched, or otherwise hurt by someone within the past year? If so, by whom?: No Are you DNR?: No Advance Directives: No Advance Directives Information Provided: Yes Poor oral hygiene: No Current occupational status: employed Current occupation: [employer]/ Meds Allergies Allergy/AdvReac Type Severity Reaction Status Date / Time No Known Allergies Allergy Verified 03/19/25 13:13 [No Known Allergies*] Exam Height,Weight and Vital Signs: Height 5 ft 6 in Weight 64.864 kg Pertinent Lab Results Pertinent Lab Results: Laboratory Tests 12/31/24 14:22 WBC 5.9 Hgb 13.7 L Hct 39.3 L Plt Count 226 Sodium 139 Potassium 4.0 Chloride 105 Carbon Dioxide 29 BUN 12 Creatinine 0.77 Assessment and Plan Assessment Anesthesia Assessment: Chart Reviewed Documented by User: Mimi Bang MD 04/03/25 09:01 [facility] Past Medical History Medical History (Updated 02/23/25 @ 11:47 by Mallory Ibrahim PA-C) Right inguinal hernia Family History Family History Father Stroke Vision loss Diabetes Mother Arthritis Osteoporosis Hyperthyroidism Family history of problems with anesthesia: No Surgical History Surgical History No pertinent past surgical history History of Problems with Anesthesia: No Social History Social History Are you a primary career services representative to a significant other at home: No Do you presently have visiting nurse or other home services: No Alcohol intake: never Patient Tobacco Use Status: Current everyday Tobacco user Cigarette Packs Per Day: 0.5 Cigarettes Per Day: 5 Use of substances other than those prescribed or required for medical reasons: Yes Substance Use Frequency: Occasionally Have you been hit, kicked, punched, or otherwise hurt by someone within the past year? If so, by whom?: No Are you DNR?: No Advance Directives: No Advance Directives Information Provided: Yes Poor oral hygiene: No Current occupational status: employed Current occupation: [employer]/ Meds Allergies Allergy/AdvReac Type Severity Reaction Status Date / Time No Known Allergies Allergy Verified 03/19/25 13:13 [No Known Allergies*] Exam Airway Mallampati Class: II TM Dist: >3cm Neck ROM: Full Heart: rrr Lungs: cta Assessment and Plan Assessment Anesthesia Assessment: Anesthesia Plan Discussed Final Anesthetic Review Family History of Problems with Anesthesia: No History of Problems with Anesthesia: No NPO: Yes ASA Class: II Final Preanesthetic Review: No Changes in Pt Med Stat, Meds/Allgs Chart Reviewed and Consent Obtained/Reviewed Patient Risk: Low Procedure Risk: Low Anesthetic Plan Anesthetic Plan: GA Disposition: Standard PACU
[2025-04-03 08:25] VITALS: BP 123/81; PULSE 69; RESP 14; TEMP 36.8; O2SAT 98; BMI 21.7
[2025-04-03] MEDS: Lactated Ringers 1,000 ML 100 ML IVCONT (08:54)
--- NOTE | 2025-04-03 09:00 | MHC.SHP ---
Pre-Procedural Eval Section A - 24 Hr Update-Section A only Date of Service: 04/03/25 Section B - Complete if H&P > 30 days Chief Complaint: Unilateral inguinal hernia, without obstruction or Details of Present Illness: He would notice a reducible mass on the right groin, diagnosed to have a right inguinal hernia Relevant Family History (Specify if Yes): No Relevant Social History: None Present Medications: see Short Stay Collaborative assessment Medical History: No relevant PMH Allergies: Allergies Allergy/AdvReac Type Severity Reaction Status Date / Time No Known Allergies Allergy Verified 03/19/25 13:13 [No Known Allergies*] Review of Systems Sugical H&P ROS: Negative: Constitution, Cardiovascular and Gastrointestinal Exam Surgical H&P Exam: Normal: Heart and Normal: Lungs and Significant Findings: Abdomen (Right inguinal hernia on Valsalva) Plan Diagnosis/Plan: Unchanged I have reviewed the history and physical and performed a pertinent physical examination on my patient. No changes have occurred unless specified. Time Spent With Patient Time: Total time managing care of this patient today ____ minutes.
--- NOTE | 2025-04-03 10:03 | P.OP_ITS ---
Operative Note Operative Note Date of Service: 04/03/25 Narrative: Preop diagnosis: Right inguinal hernia, reducible Postop diagnosis: Right inguinal hernia, reducible, indirect Procedure: Repair of right inguinal hernia with mesh Surgeon: Sandoval Rice MD addictions counselor assistant: SHANELLE Pineda The patient is a 44-year-old male who was referred to me because of a right inguinal hernia. He had felt this as a large bump last December 2024 which reduced eventually. Physical exam did reveal a right inguinal hernia on Valsalva. He did state that he also had some pain in the left inguinal area in the past but physical examined the office did not reveal an obvious hernia at that time. He understood the technique of the planned procedure as well as the risks, benefits, and alternatives. He was brought to the operating room. He was placed supine under general anesthesia via laryngeal mask airway. The right groin was prepped and draped in usual sterile fashion. A surgical time-out was done. The patient received cefazolin 2 g IV preoperatively I infiltrated the planned line of incision with lidocaine 1%. I made a short incision on the skin with a blade 15. This a short incision along an imaginary line from the anterior superior iliac spine to the pubic ramus. This incision was carried down with electrocautery through the full-thickness of the skin subcutaneous fat to expose the oblique aponeurosis. I bluntly dissected the aponeurosis to identify the external ring. I define the external ring. I made a short incision on the external oblique aponeurosis blade 15. And this was extended inferomedially to connect with the external ring I applied hemostasis on the divided edges with the external oblique aponeurosis. I bluntly dissected the underside of the aponeurosis a pocket for the mesh. I we dissected the spermatic cord until I was able to pass a Alicia drain around this to use for retraction. I identified the vas deferens and the accompanying vessels and these were protected during the dissection. By doing so was able to also identify a hernia sac immediately. I proceeded to gently dissect the sac off of the rest of the cord contents until I was able to reduce this completely through the internal ring. I reinforced the internal ring with the small-sized Prolene plug. The plug was secured to the shelving edge of the inguinal meant laterally and the internal oblique superiorly medially using the inner leaves of the mesh I reinforced the entire floor of the canal with a keyhole mesh. The tails of the mesh were passed around the cord at the level of the internal ring and were secured together with Prolene 2-0 sutures. I secured the flat mesh to the shelving edge of the inguinal meant laterally and the internal oblique medially, and to the pubic ramus inferomedially. I observed for hemostasis. I irrigated. Once hemostasis was confirmed, I proceeded to then removed the Alicia drain. I closed the he will oblique aponeurosis with a running Polysorb 2-0 stitch to re-create the external ring The subcutaneous layer was reapposed with Polysorb 3-0 simple interrupted sutures. Skin closure was achieved with Polysorb 4-0 subcuticular running sutures. The area was infiltrated with Marcaine 0.5% for postop analgesia. Dressings were applied and the procedure was completed The patient tolerated the procedure well. There were no immediate complications. Initial and final counts of sponges and instruments were correct. Estimated blood loss was less than 10 cc . The patient was extubated without difficulty and transferred to the recovery room with stable vital signs.
[2025-04-03 10:18] VITALS: BP 124/83; PULSE 56; RESP 14; TEMP 36.2; O2SAT 100
[2025-04-03 10:20] VITALS: BP 114/79; PULSE 54; RESP 14; O2SAT 100
[2025-04-03 10:25] VITALS: BP 115/80; PULSE 53; RESP 14; O2SAT 100
[2025-04-03 10:30] VITALS: BP 119/73; PULSE 55; RESP 14; O2SAT 100
[2025-04-03 10:45] VITALS: BP 121/87; PULSE 56; RESP 14; O2SAT 100
== END 2025-04-03 12:03 | disposition home or self-care (01) ==
PROVIDERS: PCP Internal Medicine; Visit Provider Surgery
PROC: (CPT 49505; principal; 2025-04-03 09:50)
DX: K40.90 Unilateral inguinal hernia, without obstruction or gangrene, not specified as recurrent (principal); Z79.1 Long term (current) use of non-steroidal anti-inflammatories (NSAID); Z79.899 Other long term (current) drug therapy; F17.210 Nicotine dependence, cigarettes, uncomplicated
CPT/HCPCS: 49505; C1781; J0690; J1100; J1885; J2003; J2250; J2405; J2704; J2795; J3010

== ENCOUNTER → 2025-04-03 07:57 | Outpatient (BNV) | payer MEDICAID, SELFPAY | PROVIDERS: PCP Internal Medicine; Visit Provider Surgery | DX: K40.90 Unilateral inguinal hernia, without obstruction or gangrene, not specified as recurrent (principal) | CPT/HCPCS: 49505 ==

== ENCOUNTER 2025-04-17 09:27 | Outpatient (AMB) | payer MEDICAID, SELFPAY ==
--- NOTE | 2025-04-17 10:11 | A.OFFVIS_ITS ---
Intake Visit Reasons: OV- right ankle pain, DOI 12/31/24 Intake Note: Kyree is a 44 year old male who presents today for a follow up of his right ankle sprain, DOI 12/31/24. Patient reports his ankle is doing well. He is anticipating to return to work. He has went under surgery recently for a hernia, so he is still out of work. Allergies No Known Allergies [No Known Allergies*] Allergy (Verified 04/17/25 10:14) HPI HPI OV- right ankle pain, DOI 12/31/24: Details: Mr. Presley is a 44-year-old male who presents to the office today for routine follow-up of a right ankle sprain that he sustained on 12/31/2024. Overall the patient is doing very well. He is looking to return back to work full-time regular duty. [facility] Medical History (Updated 02/23/25 @ 11:47 by Mallory Ibrahim PA-C) Right inguinal hernia Surgical History No pertinent past surgical history Family History Father Stroke Vision loss Diabetes Mother Arthritis Osteoporosis Hyperthyroidism Social History Are you a primary plant care worker to a significant other at home: No Do you presently have visiting nurse or other home services: No Alcohol intake: never Comment: counts correct Patient Tobacco Use Status: Current everyday Tobacco user Cigarette Packs Per Day: 0.5 Cigarettes Per Day: 5 Current occupational status: employed Current occupation: [employer]/ Review of Systems Const All systems reviewed & are unremarkable except as noted in HPI and below Physical Exam Const General: cooperative, healthy appearing and no acute distress Resp Effort & Inspection: normal respiratory effort and able to speak in complete sentences Cardio Rate: regular rate Peripheral pulses: Peripheral pulses 2+ throughout Skin Lesions: no lesions Rashes: no rashes Extrem Other: Right ankle normal to inspection no ecchymosis, erythema or edema. Able to demonstrate dorsiflexion, plantar flexion, pronation supination with no discomfort and to end range. Sensation is intact. Pedal pulse intact. Assessment & Plan Assessment & Plan (1) Right ankle sprain: Code(s): S93.401A - Sprain of unspecified ligament of right ankle, initial encounter Category: Medical Plan Mr. Presley is a 44-year-old male who presents to the office today for routine follow-up of a right ankle sprain that he sustained on 12/31/24. Patient states t hat he was attending some physical therapy sessions however was not content with continuing due to some concerns he had with not receiving his full session of physical therapy after being a few minutes late and reportedly not having the same physical therapist for each session. Patient denies any pain or difficulties at this time with the right ankle and he is looking to return back to work full-time regular duty While in the office today, the patient was provided with a return to work note for full-time regular duty status with the signature from Dr. Alas. There is additional paperwork that is required from his job in regards to work status which was also filled out appropriately and signed by Dr. Alas. He will follow up PRN, sooner if needed. Coding Level of Care Code Est Pt Level 3 (63801) Diagnoses Right ankle sprain S93.401A
== END 2025-04-17 11:09 | disposition home or self-care (01) ==
LOC: HO.HOS 09:28
PROVIDERS: PCP Internal Medicine; Visit Provider Physician Assistant
DX: S93.401A Sprain of unspecified ligament of right ankle, initial encounter (principal)
CPT/HCPCS: 99213

== ENCOUNTER → 2025-04-17 09:27 | Outpatient (BNVA) | payer MEDICAID, SELFPAY | PROVIDERS: PCP Internal Medicine; Visit Provider Physician Assistant | DX: S93.401D Sprain of unspecified ligament of right ankle, subsequent encounter (principal); X58.XXXD Exposure to other specified factors, subsequent encounter | CPT/HCPCS: 99212 ==

== ENCOUNTER 2025-04-22 08:24 | Outpatient (AMB) | payer MEDICAID, SELFPAY ==
--- NOTE | 2025-04-22 08:39 | MHC.OFFVIS ---
Vital Signs 04/22/25 09:01 Weight 138 lb BP 114/75 Blood Pressure Location Rt brachial Position Sitting Pulse 83 Intake Visit Reasons: s/p RIH w/mesh Intake Note: Patient here s/p RIH w/mesh. Reports incision healing well. Steri strips still in place. Patient c/o: pain at surgical site. Rx pain meds helping. Surgery: 04-03-2025 Telecommunications Field Engineer Required: No Accompanied by: Self / Same As Patient Allergies No Known Allergies [No Known Allergies*] Allergy (Verified 04/22/25 09:00) HPI HPI s/p RIH w/mesh: Details: He underwent repair of a right inguinal hernia with mesh last 04/03/2025. He tolerated procedure well He does state that she still has some residual pain although this has been improving. He has been ambulating well and has been driving as well. [facility] Medical History Right inguinal hernia Surgical History No pertinent past surgical history Family History Father Stroke Vision loss Diabetes Mother Arthritis Osteoporosis Hyperthyroidism Social History Are you a primary skin care specialist to a significant other at home: No Do you presently have visiting nurse or other home services: No Alcohol intake: never Comment: counts correct Patient Tobacco Use Status: Current everyday Tobacco user Cigarette Packs Per Day: 0.5 Cigarettes Per Day: 5 Current occupational status: employed Current occupation: [employer]/ Review of Systems Const Denies chills and Denies fever(s) Card Denies chest pain Resp Denies cough GI Denies vomiting Physical Exam Vital Signs: Last Vital Signs Pulse 83 04/22/25 09:01 BP 114/75 04/22/25 09:01 Const General: comfortable and no acute distress Resp Effort & Inspection: normal respiratory effort GI Other: Hernia repair site on the right well healed, not infected, repair intact, no cellulitis Assessment & Plan Assessment & Plan (1) Right inguinal hernia: Code(s): K40.90 - Unilateral inguinal hernia, without obstruction or gangrene, not specified as recurrent Category: Medical Plan: Status post repair with mesh. He is doing very well. The repair site is intact and is well healed. He says that he still has occasional pain and ask for some pain medications He can return to work May 04 without restrictions. He can follow up on a p.r.n. basis. Coding Level of Care Code Global (47931) Diagnoses Right inguinal hernia K40.90
[2025-04-22 09:01] VITALS: BP 114/75; PULSE 83
== END 2025-04-22 09:14 | disposition home or self-care (01) ==
LOC: HO.HGS 08:25
PROVIDERS: PCP Internal Medicine; Visit Provider Surgery
DX: K40.90 Unilateral inguinal hernia, without obstruction or gangrene, not specified as recurrent (principal)
CPT/HCPCS: 99024

== ENCOUNTER → 2025-04-22 08:24 | Outpatient (BNVA) | payer MEDICAID, SELFPAY | PROVIDERS: PCP Internal Medicine; Visit Provider Surgery | DX: Z48.815 Encounter for surgical aftercare following surgery on the digestive system (principal); Z98.890 Other specified postprocedural states | CPT/HCPCS: 99212 ==